=== PATIENT | female | born 1940 | race Caucasian/White ===

== ENCOUNTER → 2022-04-15 | Outpatient (CLI) | payer MEDICARE ==
[~2022-04-15] MED LIST: CATHETER FLUSH 10 ML SYR IV PRN; HOLD METFORMIN - RECEIVED CONTRAST 20 ML VIAL IV SCH; IOHEXOL 350 MG/ML 100 ML (OMNIPAQUE 350) VIAL IV ONE; NS 100 ML (IVPB) BAG IV ONE
--- NOTE | 2022-04-15 16:09 | Diagnostic Imaging Report ---
PROCEDURE: CT abdomen and pelvis with contrast. TECHNIQUE: Multiple contiguous axial images were obtained through the abdomen and pelvis after administration of intravenous contrast. Auto Exposure Controls were utilized during the CT exam to meet ALARA standards for radiation dose reduction. All CT scans use one or more of the following dose optimizing techniques: Automated exposure control, MA and/or KvP adjustment based on patient size and exam type or iterative reconstruction. INDICATION: Bloating and back pain. No prior studies are available for comparison. FINDINGS: Imaging through the lung bases does show a calcified granuloma in the right lower lobe. No discrete liver mass is detected. Gallbladder appears contracted. There is no biliary ductal dilatation. The pancreas is unremarkable. Spleen contains numerous calcified granulomas. No adrenal mass is detected. Right kidney is unremarkable. Left kidney contains a 4 mm nonobstructing calculus in the upper pole. Aorta is calcified but nonaneurysmal. There is some moderate fluid-filled distention to the stomach. There is moderate stool throughout the colon suggestive of constipation. Small bowel has normal caliber. No free fluid or fluid collection is seen. The uterus is unremarkable. The bladder is decompressed. No inflammatory changes are identified. IMPRESSION: 1. There is some moderate fluid-filled distention to the stomach, nonspecific. The small and large bowel loops are appear nonobstructed. There is moderate stool in the colon suggestive of constipation. 2. Small nonobstructing left renal calculus. Dictated by: Dictated on workstation # [id number]
== END ==
LOC: RAD FS 13:57
PROVIDERS: ATTEND Nurse Practitioner
DX: N20.0 Calculus of kidney (principal)
CPT/HCPCS: 74177; Q9967

== ENCOUNTER → 2022-11-19 | Outpatient (CLI) | payer MEDICARE | LOC: CARD 11:07 | PROVIDERS: ATTEND Nurse Practitioner | DX: I34.0 Nonrheumatic mitral (valve) insufficiency (principal) | CPT/HCPCS: 93306 ==